=== PATIENT | male | born 1980 | race African-American/Black ===

== ENCOUNTER → 2016-07-07 | Outpatient (CLI) | payer OTHER ==
[~2016-07-07] MED LIST: ACET-749 PO; DOCU-94 PO; GABA800T PO; IBUP-1451 PO; KPP/1000 PO; LACO100T PO; LACO200T PO; LEVE500T13 PO; MELATAB2 PO; MULT-220 PO; PANT40TA PO; POLY335019 PO; QUET1TAB30 PO; SERT50TA PO; SIMV20TA2 PO; SKINCRE34 TOP; TEMA30CA4 PO; ZONI100C39 PO
[2016-07-07 13:56] LABS: ALT/SGPT 58 U/L (12-78); BLOOD UREA NITROGEN 20 mg/dl (7-18); BUN/CREATININE RATIO 15.7 (10-20); CALCIUM 8.8 mg/dl (8.5-10.1); CARBON DIOXIDE 25 mmol/L (21-32); CHLORIDE 112 mmol/L (98-107); CHOLESTEROL 168 mg/dl (0-200); GLUCOSE 105 mg/dl (70-99); POTASSIUM 3.7 mmol/L (3.5-5.1); SODIUM 144 mmol/L (136-145)
[2016-07-07 13:59] LABS: ALB/GLOB RATIO 1.1 (0.9-2); ALKALINE PHOSPHATASE 154 U/L (45-117); AST/SGOT 14 U/L (15-37); CHOLESTEROL/HDL RATIO 4.1; HDL CHOLESTEROL 41 mg/dl; LDL CHOLESTEROL CALCULATED 102 mg/dl; TRIGLYCERIDES 123 mg/dl (0-150); VERY LOW DENSITY LIPOPROT CALC 25 mg/dl
== END | disposition home or self-care (01) ==
LOC: C.LABBC 09:12
PROVIDERS: ATTEND Family Medicine
DX: G40.909 Epilepsy, unspecified, not intractable, without status epilepticus (principal); E78.5 Hyperlipidemia, unspecified

== ENCOUNTER 2016-09-13 09:00 | Emergency (ER) | payer OTHER ==
[~2016-09-13 09:00] MED LIST changes: -ACET-749 PO; -DOCU-94 PO; -KPP/1000 PO; -LACO100T PO; -MELATAB2 PO; -MULT-220 PO; -POLY335019 PO; -QUET1TAB30 PO; -SERT50TA PO; -SIMV20TA2 PO; -TEMA30CA4 PO
[2016-09-13 09:06] VITALS: TEMP 36.7; Ht 172.7 cm
[2016-09-13] MEDS ORDERED: XYLOCAINE 1%/SOD BICARB 20 ML VIAL INFIL STA (09:26)
[2016-09-13] MEDS ORDERED: POLY335019 PO (09:27)
--- NOTE | 2016-09-13 10:13 | DIAGNOSTIC IMAGING REPORT ---
HEAD CT NONCONTRAST CT DOSE: 537.48 mGy.cm HISTORY: Trauma trauma. Change in mental status. TECHNIQUE: Multiaxial CT images of the head were performed without the use of intravenous contrast. Comparison: 11/08/2015 Findings: The paranasal sinuses and mastoid air cells are clear. Stable postoperative craniotomy changes. Stable of the PRICER shunt placement. No evidence hydrocephalus. No evidence for acute intracranial hemorrhage. Geographic areas of encephalomalacia right cerebral hemisphere unchanged. Impression: Chronic and postoperative change. No acute intracranial abnormality. Electronically signed by: Steven Chaudhary M.D. 09/13/2016 10:12 AM Dictated Date/Time: 09/13/2016 10:00 AM
--- NOTE | 2016-09-13 10:53 | EMERGENCY ROOM VISIT NOTE ---
ED Visit Note First contact with patient: 09:17 Chief Complaint: "Head laceration from fall". History of Present Illness: This patient is a 35-year-old male who presents to the Emergency Department via private vehicle coming by caregivers from [facility] for evaluation of their right eyebrow laceration. Patient sustained the laceration while sleeping, and believed to a fall in the bed striking the right eyebrow off of the nearby table. They report a moderate amount of bleeding initially. They report no loss of consciousness. The patient states this occurred around 7 AM, and then called for his caregiver after falling. He believes that he caught himself. He does have a minor headache, but denies any vision changes, loss of consciousness, nausea or vomiting. Patient's Tetanus status is currently up-to-date. Medications: As noted below Allergies: As noted below PMH: As noted below SHx: Patient lives at [facility]. ROS: All pertinent positive and negative review of systems are appropriately documented in the History of Present Illness. Physical Exam: VITAL SIGNS - Vital signs and nursing notes were reviewed. Patient is afebrile , normotensive, non-tachycardic and is saturating well on room air 97%. GENERAL -35-year-old male appearing his stated age. Communicates well with provider and answers questions appropriately. SKIN - There is a 3 cm laceration noted anterior to superior over the right eyebrow. The edges gape apart with traction. There is minimal active bleeding appreciated. No deep structures including vessels, musculature, or bony structures are appreciated. HEAD - Normocephalic. No Miller's Sign or Raccoon's Eyes. No depressed skull fractures palpable. At baseline the patient does have evidence of a prior to medic brain injury/surgery. EYES - PERRL with EOMI bilaterally. Without subconjunctival hemorrhage. Palpebral conjunctiva pink and moist with no injection. EARS - No deformities of external structures noted on gross examination bilaterally. No hemotympanum present. No tympanic perforation noted. NOSE - Midline and without cyanosis. No epistaxis or clear watery discharge noted. Septum midline without deviation. No septal hematoma noted. No overlying ecchymosis noted. MOUTH/OROPHARYNX - Without perioral cyanosis. Tongue midline with equal elevation of palate bilaterally. No blood noted in the oropharynx. No tonsillar hypertrophy, erythema, or exudates noted. No dental fractures noted. NECK - FROM assessed. No tenderness to palpation over the cervical spinous processes. No cervical paraspinal muscle tenderness noted. LUNGS - Chest wall symmetric without accessory muscle use, intercostals retractions, or central cyanosis. Normal vesicular breath sounds CTA B/L. No wheezes, rales, or rhonchi appreciated. CARDIAC - RRR with S1/S2. No murmur, rubs, or gallops appreciated. EXTREMITIES - No gross deformities noted of the extremities. NEUROLOGIC - no new neurologic deficits were appreciated upon exam. PSYCH - Pt is very pleasant and interacts well with examiner. IMAGING: HEAD CT NONCONTRAST CT DOSE: 537.48 mGy.cm HISTORY: Trauma trauma. Change in mental status. TECHNIQUE: Multiaxial CT images of the head were performed without the use of intravenous contrast. Comparison: 11/08/2015 Findings: The paranasal sinuses and mastoid air cells are clear. Stable postoperative craniotomy changes. Stable of the [employer] shunt placement. No evidence hydrocephalus. No evidence for acute intracranial hemorrhage. Geographic areas of encephalomalacia right cerebral hemisphere unchanged. Impression: Chronic and postoperative change. No acute intracranial abnormality. Electronically signed by: Steven Chaudhary M.D. 09/13/2016 10:12 AM Dictated Date/Time: 09/13/2016 10:00 AM ED Course: Patient was seen and evaluated by myself. Patient had no focal neurological deficits. Patient's exam is otherwise unremarkable. Due to the patient not recalling the incident well, I was concerned for acute intracranial abnormality therefore did elect to obtain a CT scan of the head. Results as above. No acute findings. Risks and benefits of performing primary wound closure versus no repair were discussed with the patient who verbalizes understanding. Verbal consent was obtained prior to performing the procedure. 2 cc of 1% buffered lidocaine was used to anesthetize the 3 cm laceration. The wound was cleansed and prepped in the typical sterile fashion utilizing normal saline without Betadine secondary to the patient's allergy. The wound was sterilely draped. Once proper anesthetization was established, the wound was further examined and demonstrated a linear laceration overlying the right eyebrow. The wound was copiously irrigated with normal saline. The wound was closed using 6 simple, 6- 0 nylon sutures with the wound edges being well approximated as well as 1, 6-0 Vicryl underneath . Patient tolerated the procedure well. No complications were met. The wound was cleansed and dressed with a Bacitracin dressing. Patient educated on worrisome symptoms for return visit to the Emergency Department. Patient discharged to home in good condition. In the evaluation and treatment of this patient, the following differential diagnoses were considered: Concussion, Contrecoup Injury, Brain Tumor, Depression, Encephalitis, Hypothyroidism, Meningitis, CVA, TIA, Migraine, Cluster Headache, Intracranial Abnormality, Intracranial Hemorrhage, Subdural Hematoma, Subarachnoid Hemorrhage, Hydrocephalus, facial laceration ,among others . Problem List Medical Problems: (1) Seizure disorder Status: Chronic (2) Traumatic brain injury Status: Chronic Current/Historical Medications Scheduled Docusate Sodium (Colace), 1 CAP PO BID Eucerin (Eucerin), 1 APPLN TOP QPM Gabapentin (Neurontin), 800 MG PO AMPM Gabapentin (Neurontin), 1,600 MG PO HS Lacosamide (Vimpat), 200 MG PO BID Levetiracetam (Keppra), 2,000 MG PO BID Pantoprazole (Protonix), 40 MG PO QAM Polyethylene Glycol 3350 (Miralax), 17 GM PO DAILY Quetiapine Fumarate (Seroquel), 25 MG PO HS Sertraline Hcl (Zoloft), 50 MG PO DAILY Simvastatin (Zocor), 20 MG PO QPM Zonisamide (Zonegran), 100 MG PO DAILY Scheduled PRN Ibuprofen Tab (Motrin), 800 MG PO UD PRN for Pain Allergies Coded Allergies: Carbapenems (Unverified Allergy, Unknown, UNKNOWN, 09/13/16) Cephalosporins (Unverified Allergy, Unknown, UNKNOWN, 09/13/16) Iodine (Unverified Allergy, Unknown, UNKNOWN, 09/13/16) Lactose Intolerance (GI) (Unverified Allergy, Unknown, UNKNOWN, 09/13/16) Penicillins (Unverified Allergy, Unknown, UNKNOWN, 09/13/16) Pork (Unverified Allergy, Unknown, UNKNOWN, 09/13/16) Shellfish Allergy (Unverified Allergy, Unknown, UNKNOWN, 09/13/16) Vital Signs Date Time Temp Pulse Resp B/P Pulse Ox O2 Delivery O2 Flow Rate FiO2 09/13/16 11:08 79 16 124/71 99 09/13/16 09:06 36.7 76 18 118/78 97 Room Air Medications Administered Medications (Trade) Dose Ordered Sig/Kami Route Start Time Stop Time Status Last Admin Dose Admin Lidocaine HCl (Buffered Lidocaine 1% Inj) 20 ml ONE STAT INFIL 09/13/16 09:26 09/13/16 09:28 DC 09/13/16 09:26 20 ML Departure Information Impression Primary Impression: Laceration Dispostion Home / Self-Care Condition GOOD Referrals Scar Serna D.O.Int.Med. (PCP) Patient Instructions My [facility] Additional Instructions Discharge Instructions: You have received 6 sutures on your right eyebrow. These sutures are NOT dissolvable and WILL need to be removed by a health care provider in 7-8 days. You can return to the Emergency Department or contact your Primary Care Provider to have the sutures removed. Proper wound care is essential for adequate wound healing and infection prevention. You can shower and clean the wound with soap and water. Do not scour over the wound, pat dry with a towel. Do not submerse the wound (i.e. bathe or dish wash) until the sutures have been removed. You can use an antibiotic ointment with a dressing over the wound for the next 2-3 days. After this time you may leave the wound dry and open to the air. If crust develops over the wound you can use a Q-tip to apply a 1:1 peroxide:water solution to clean the wound. Look for signs of infection of the wound including: increased pain, swelling, foul discharge, streaking, or increased temperature. If any of these are noticed you should return to the Emergency Department for further assessment and treatment. As with any laceration you may have received nerve damage to the surrounding tissues. This damage may or may not be permanent. You should keep the area covered with sunscreen for the first 6 months to 1 year when at risk for exposure to help minimize scarring. You can also use scar reducing creams or Vitamin E oil to help minimize scarring. For pain control, you can use the following [id number] medicines (if >12 yo): - Regular strength (325mg/tab) Tylenol (acetaminophen) 2 tabs every 4-6 hours as needed. Do not exceed 12 tablets in a 24 hour period. Avoid taking more than 4 grams (4000 mg) of Tylenol per day. This includes any other sources of acetaminophen you may take on a regular basis. - Regular strength (200 mg/tab) Advil (ibuprofen) 1-2 tabs every 4-6 hours as needed. Do not exceed a dose of 3200 mg per day. Return to the emergency department if your symptoms worsen despite treatment course outlined above. Please return to the emergency department with any new/concerning symptoms.
[2016-09-13 11:08] VITALS: BP 124/71; PULSE 79; O2SAT 99
== END 2016-09-13 11:10 | disposition home or self-care (01) ==
LOC: C.EDB 09:01 → C.EDA 11:10
DX: S01.81XA Laceration without foreign body of other part of head, initial encounter (principal); W06.XXXA Fall from bed, initial encounter; Y92.193 Bedroom in other specified residential institution as the place of occurrence of the external cause; G40.909 Epilepsy, unspecified, not intractable, without status epilepticus; Z87.820 Personal history of traumatic brain injury; Z79.899 Other long term (current) drug therapy

== ENCOUNTER 2016-09-18 09:02 | Emergency (ER) | payer OTHER ==
[~2016-09-18] VITALS: Ht 172.7 cm; Wt 85.0 kg
[~2016-09-18 09:02] MED LIST changes: +POLY335019 PO
[2016-09-18 09:08] VITALS: TEMP 36.7; Ht 172.7 cm; Wt 85.0 kg
[2016-09-18 09:22] VITALS: O2SAT 99
[2016-09-18] MEDS ORDERED: DOCU-94 PO (09:27)
[2016-09-18 09:49] LABS: BASO % 0.5 %; BASO ABS # 0.03 K/uL (0-0.2); COMPLETE YES; EOS % 5.9 %; HEMATOCRIT 49.5 % (42-52); IG% 0.2 %; LYMPH % 27.5 %; MEAN CELL VOLUME 86.7 fL (80-100); MEAN CORPUSCULAR HEMOGLOBIN 30.8 pg (25-34); MEAN CORPUSCULAR HGB CONC 35.6 g/dl (32-36); MEAN PLATELET VOLUME 11.5 fL (7.4-10.4); MONO % 8.8 %; NEUT % 57.1 %; PLATELET COUNT 136 K/uL (130-400); RED BLOOD COUNT 5.71 M/uL (4.7-6.1); WHITE BLOOD COUNT 5.81 K/uL (4.8-10.8)
[2016-09-18] MEDS ORDERED: MELATAB2 PO (09:54)
[2016-09-18] MEDS ORDERED: MULT-220 PO (09:54)
[2016-09-18] MEDS ORDERED: TEMA30CA4 PO (09:54)
[2016-09-18 10:17] LABS: ALB/GLOB RATIO 1.1 (0.9-2); BUN/CREATININE RATIO 11.9 (10-20); CALCIUM 8.9 mg/dl (8.5-10.1); CREATININE 1.2 mg/dl (0.60-1.40); POTASSIUM 3.9 mmol/L (3.5-5.1)
[2016-09-18] MEDS ORDERED: IBUPROFEN 800 MG TAB PO STA (10:36)
[2016-09-18] MEDS ORDERED: IBUPROFEN 200 MG TAB ONE (10:37)
[2016-09-18] MEDS ORDERED: IBUPROFEN 600 MG TAB ONE (10:37)
--- NOTE | 2016-09-18 11:05 | EMERGENCY ROOM VISIT NOTE ---
History Report prepared by Germania: Andrei Weiner Under the Supervision of: Dr. Tony Dodge M.D. First contact with patient: 10:19 Chief Complaint: NEURO SYMPTOMS Stated Complaint: SEIZURES X2 IN LESS THAN 24 HRS Nursing Triage Summary: Presents with 2 seizures in 24 hours. History of Present Illness The patient is a 35 year old male who presents to the Emergency Room with complaints of two seizure-like episodes in twenty-four hours. The patient has a history of TBI, seizures and a POOL HAND shunt. Per the patient's caretakers, the last time the patient had seizures was 9 months ago. At that time, he was having very frequent seizures and he was brought into the hospital for 2 days. The patient's neurologist advised the patient's caretakers to call her if he had one seizure and to present to the ED if he had 2 seizure episodes in 24 hours. The patient had one seizure last night around 8 PM. He had another witnessed seizure episode this morning. Per the patient's caretakers, the episode lasted 2 -3 minutes. His whole body was shaking and his eyes rolled back. The caretakers caught him and laid him on his side on the floor. Per the caretakers, the patient has been sleeping more irregularly for the last month. He also had episodes of incontinence before and after his seizure episode yesterday evening ; however, he was not incontinent during his seizure-episode this morning. His left-side is typically weak from his brain injury and this weakness is worsened after seizures. He complains of left-sided arm and leg weakness currently. However, per caretakers, his weakness has already improved since the episode this morning. He also complains of a headache. He denies pain in his abdomen or legs or biting his tongue. He was also recently in the ED last week for a fall. At that time, he had a CT scan which was clear. He denies any recent changes in his seizure medications. Source of History: patient Onset: the past twenty-four hours Position: other (global) Associated Symptoms: + headache, + urinary symptoms (incontinence), + weakness (left-sided), No abdominal pain Note: Other associated symptoms: shaking, eyes rolling back, irregular sleep patterns Denies: biting his tongue, recent changes in medications Review of Systems All systems have been listed, reviewed, and are negative other than those previously mentioned. Please see Additional Medical History Sheet. Past Medical & Surgical Medical Problems: (1) Seizure disorder (2) Traumatic brain injury Family History No pertinent family history Social History Smoking Status: Former Smoker Drug Use: none Marital Status: single Occupation Status: disabled Current/Historical Medications Scheduled Docusate Sodium (Colace), 1 CAP PO BID Eucerin (Eucerin), 1 APPLN TOP QPM Gabapentin (Neurontin), 800 MG PO AMPM Gabapentin (Neurontin), 1,600 MG PO HS Lacosamide (Vimpat), 200 MG PO BID Levetiracetam (Keppra), 2,000 MG PO BID Melatonin (Melatonin Maximum Strengt), 5 MG PO HS Multiple Vitamins W/ Minerals (Multi For Him), 1 TAB PO DAILY Pantoprazole (Protonix), 40 MG PO QAM Polyethylene Glycol 3350 (Miralax), 17 GM PO DAILY Quetiapine Fumarate (Seroquel), 25 MG PO HS Sertraline Hcl (Zoloft), 50 MG PO DAILY Simvastatin (Zocor), 20 MG PO QPM Zonisamide (Zonegran), 100 MG PO DAILY Scheduled PRN Ibuprofen Tab (Motrin), 800 MG PO UD PRN for Pain Temazepam (Restoril), 30 MG PO HS PRN for Sleep Allergies Coded Allergies: Carbapenems (Unverified Allergy, Unknown, UNKNOWN, 09/13/16) Cephalosporins (Unverified Allergy, Unknown, UNKNOWN, 09/13/16) Iodine (Unverified Allergy, Unknown, UNKNOWN, 09/13/16) Lactose Intolerance (GI) (Unverified Allergy, Unknown, UNKNOWN, 09/13/16) Penicillins (Unverified Allergy, Unknown, UNKNOWN, 09/13/16) Pork (Unverified Allergy, Unknown, UNKNOWN, 09/13/16) Shellfish Allergy (Unverified Allergy, Unknown, UNKNOWN, 09/13/16) Physical Exam Vital Signs Date Time Temp Pulse Resp B/P Pulse Ox O2 Delivery O2 Flow Rate FiO2 09/18/16 12:41 76 18 119/78 96 Room Air 09/18/16 10:44 70 18 137/96 96 Room Air 09/18/16 09:27 76 09/18/16 09:22 99 Room Air 09/18/16 09:08 36.7 78 20 115/78 93 Room Air Physical Exam GENERAL: Patient awake, alert, oriented x 3. Patient follows commands. Patient does not appear toxic. Patient is adequately hydrated and well- nourished. Patient has old traumatic injury to the right side of his face and fronto-temporal area. SKIN: No erythema, pallor, cyanosis or rash HEENT: Normal head, Patient has dysconjugate gaze. Ears normal. Oral cavity and posterior pharynx appear normal. Neck: Without adenopathy, no neck vein distention. LUNGS: Clear to auscultation. No wheezes, no rales, no rhonchi. HEART: No murmurs. No gallops. No rubs ABDOMEN: No masses, no rebound, no hepatomegaly or splenomegaly. EXTREMITIES: No signs of trauma. No pedal or pretibial edema. No calf or thigh tenderness. Patient has weakness of left arm and left leg which is typical of post-seizure findings. NEUROLOGIC: Cranial nerves II-XII within normal limits. No gross motor sensory function deficits. Medical Decision & Procedures ER Provider Diagnostic Interpretation: CT results are interpretations by the radiologist and per my review. CT SCAN OF THE BRAIN WITHOUT IV CONTRAST CLINICAL HISTORY: Seizure. History of remote brain injury with ventriculoperitoneal shunt. COMPARISON STUDY: CT of the brain dated 09/13/2016. TECHNIQUE: Unenhanced axial CT scan of the brain is performed from the vertex to the skull base. Automated dose control exposure was utilized. CT DOSE: 690.05 mGycm FINDINGS: Brain parenchyma: Right frontotemporoparietal encephalomalacia is unchanged from previous and consistent with a remote insult. A left posterior parietal approach ventriculostomy catheter is unchanged in position, with the tip terminating in the right periventricular white matter. Ventricular caliber is unchanged from previous. There is no hemorrhage, mass effect, or evidence of acute territorial ischemia by CT criteria. [place]-white matter is preserved. No extra-axial fluid collection is seen. Ventricles, sulci, cisterns: Normal in configuration. See above. Intracranial vasculature: The visualized intracranial vasculature at the skull base is normal in appearance. Calvarium: There are postoperative changes from right frontoparietal craniotomy and right temporal craniectomy. There is a left posterior parietal jose hole. Sinuses and mastoids: The visualized paranasal sinuses are clear. The mastoid air cells are well pneumatized. A metallic foreign body is seen below the left mastoids. Metallic foreign bodies are also seen posterior to the left mandibular condyle. Orbits: There is a remote fracture of the left lamina papyracea. The bony orbits are otherwise grossly intact. IMPRESSION: 1. There is no hemorrhage, mass effect, or evidence of acute territorial ischemia by CT criteria. 2. Right hemispheric encephalomalacia is unchanged from previous and consistent with a remote insult. 3. A left parietal approach ventriculostomy catheter is unchanged in position. The ventricles are decompressed, and ventricular caliber is unchanged from 09/13/2016. Electronically signed by: Hank Lagunas M.D. 09/18/2016 11:26 AM Dictated Date/Time: 09/18/2016 11:21 AM Laboratory Results 09/18/16 09:35 Red Blood Count 5.71, Mean Corpuscular Volume 86.7, Mean Corpuscular Hemoglobin 30.8, Mean Corpuscular Hemoglobin Concent 35.6, Mean Platelet Volume 11.5, Neutrophils (%) (Auto) 57.1, Lymphocytes (%) (Auto) 27.5, Monocytes (%) (Auto) 8.8, Eosinophils (%) (Auto) 5.9, Basophils (%) (Auto) 0.5, Neutrophils # (Auto) 3.32, Lymphocytes # (Auto) 1.60, Monocytes # (Auto) 0.51, Eosinophils # (Auto) 0.34, Basophils # (Auto) 0.03 09/18/16 09:35 Test 09/18/16 09:35 09/18/16 11:30 White Blood Count 5.81 K/uL (4.8-10.8) Red Blood Count 5.71 M/uL (4.7-6.1) Hemoglobin 17.6 g/dL (14.0-18.0) Hematocrit 49.5 % (42-52) Mean Corpuscular Volume 86.7 fL (80-100) Mean Corpuscular Hemoglobin 30.8 pg (25-34) Mean Corpuscular Hemoglobin Concent 35.6 g/dl (32-36) Platelet Count 136 K/uL (130-400) Mean Platelet Volume 11.5 fL (7.4-10.4) Neutrophils (%) (Auto) 57.1 % Lymphocytes (%) (Auto) 27.5 % Monocytes (%) (Auto) 8.8 % Eosinophils (%) (Auto) 5.9 % Basophils (%) (Auto) 0.5 % Neutrophils # (Auto) 3.32 K/uL (1.4-6.5) Lymphocytes # (Auto) 1.60 K/uL (1.2-3.4) Monocytes # (Auto) 0.51 K/uL (0.11-0.59) Eosinophils # (Auto) 0.34 K/uL (0-0.5) Basophils # (Auto) 0.03 K/uL (0-0.2) RDW Standard Deviation 41.1 fL (36.4-46.3) RDW Coefficient of Variation 12.9 % (11.5-14.5) Immature Granulocyte % (Auto) 0.2 % Immature Granulocyte # (Auto) 0.01 K/uL (0.00-0.02) Anion Gap 6.0 mmol/L (3-11) Est Creatinine Clear Calc Drug Dose 92.0 ml/min Estimated GFR () 90.9 Estimated GFR (Non- 78.4 BUN/Creatinine Ratio 11.9 (10-20) Calcium Level 8.9 mg/dl (8.5-10.1) Total Bilirubin 0.6 mg/dl (0.2-1) Aspartate Amino Transf (AST/SGOT) 22 U/L (15-37) Alanine Aminotransferase (ALT/SGPT) 61 U/L (12-78) Alkaline Phosphatase 127 U/L (45-117) Total Protein 7.9 gm/dl (6.4-8.2) Albumin 4.1 gm/dl (3.4-5.0) Globulin 3.8 gm/dl (2.5-4.0) Albumin/Globulin Ratio 1.1 (0.9-2) Chemistry Specimen Hemolysis Laboratory results as stated above per my review. Medications Administered Medications (Trade) Dose Ordered Sig/Kami Route Start Time Stop Time Status Last Admin Dose Admin Ibuprofen (Motrin Tab) 600 mg STK-MED ONCE .ROUTE 09/18/16 10:37 09/18/16 10:41 DC 09/18/16 10:37 600 MG Ibuprofen (Advil Tab) 200 mg STK-MED ONCE .ROUTE 09/18/16 10:37 3/27/17 10:41 DC 09/18/16 10:37 200 MG Ondansetron HCl (Zofran Odt) 4 mg ONE ONCE SL 09/18/16 12:45 09/18/16 12:46 DC 09/18/16 12:40 4 MG ED Course 1024: Past medical records reviewed. The patient was evaluated in room B5. A complete history and physical examination was performed. 1037: Ordered Advil Tab 200 mg .ROUTE, Motrin Tab 600 mg .ROUTE. 1245: Ordered Zofran Odt 4 mg SL. 1254: Upon reevaluation, the patient appeared to have improvement of his symptoms. The patient has not had a another seizure in over 3 hours. I discussed today's findings with him. He verbalized agreement of the treatment plan. The patient was discharged home. Medical Decision Differential diagnoses include seizure disorder, shunt malfunction, or seizure medication levels. Multiple labs and imaging were obtained. Please see above. The patient has no evidence of a shunt malfunction. He has no signs of acute bleed. Seizure medication levels are pending. The patient has not had as much sleep lately as usual. This may be a precipitating factor. At this point, I do not see any value in admitting the patient. I did explain to the caregivers that he could have another seizure. The patient is to follow-up with Dr. Degroot. Impression Primary Impression: Seizure disorder Scribe Attestation The scribe's documentation has been prepared under my direction and personally reviewed by me in its entirety. I confirm that the note above accurately reflects all work, treatment, procedures, and medical decision making performed by me. Departure Information Dispostion Home / Self-Care Referrals Scar Serna D.O.Int.Med. (PCP) Rena Dee D.O. Forms HOME CARE DOCUMENTATION FORM, IMPORTANT VISIT INFORMATION, WORK / SCHOOL INSTRUCTIONS Patient Instructions My [facility] Additional Instructions Continue all of your current medications as prescribed. Follow-up with Dr. Degroot as soon as possible. Return here sooner if you have more than one seizure in 12 hours.
--- NOTE | 2016-09-18 11:27 | DIAGNOSTIC IMAGING REPORT ---
CT SCAN OF THE BRAIN WITHOUT IV CONTRAST CLINICAL HISTORY: Seizure. History of remote brain injury with ventriculoperitoneal shunt. COMPARISON STUDY: CT of the brain dated 09/13/2016. TECHNIQUE: Unenhanced axial CT scan of the brain is performed from the vertex to the skull base. Automated dose control exposure was utilized. CT DOSE: 690.05 mGycm FINDINGS: Brain parenchyma: Right frontotemporoparietal encephalomalacia is unchanged from previous and consistent with a remote insult. A left posterior parietal approach ventriculostomy catheter is unchanged in position, with the tip terminating in the right periventricular white matter. Ventricular caliber is unchanged from previous. There is no hemorrhage, mass effect, or evidence of acute territorial ischemia by CT criteria. [place]-white matter is preserved. No extra-axial fluid collection is seen. Ventricles, sulci, cisterns: Normal in configuration. See above. Intracranial vasculature: The visualized intracranial vasculature at the skull base is normal in appearance. Calvarium: There are postoperative changes from right frontoparietal craniotomy and right temporal craniectomy. There is a left posterior parietal jose hole. Sinuses and mastoids: The visualized paranasal sinuses are clear. The mastoid air cells are well pneumatized. A metallic foreign body is seen below the left mastoids. Metallic foreign bodies are also seen posterior to the left mandibular condyle. Orbits: There is a remote fracture of the left lamina papyracea. The bony orbits are otherwise grossly intact. IMPRESSION: 1. There is no hemorrhage, mass effect, or evidence of acute territorial ischemia by CT criteria. 2. Right hemispheric encephalomalacia is unchanged from previous and consistent with a remote insult. 3. A left parietal approach ventriculostomy catheter is unchanged in position. The ventricles are decompressed, and ventricular caliber is unchanged from 09/13/2016. Electronically signed by: Hank Lagunas M.D. 09/18/2016 11:26 AM Dictated Date/Time: 09/18/2016 11:21 AM
[2016-09-18] MEDS ORDERED: QUET1TAB30 PO (12:04)
[2016-09-18] MEDS ORDERED: SIMV20TA2 PO (12:04)
[2016-09-18] MEDS ORDERED: SERT50TA PO (12:04)
[2016-09-18] MEDS ORDERED: ONDANSETRON 4MG OD TAB ONE (12:33)
[2016-09-18 12:41] VITALS: BP 119/78; PULSE 76; O2SAT 96
[2016-09-18] MEDS ORDERED: ONDANSETRON 4MG OD TAB SL ONE (12:45)
[2016-09-18] MEDS ORDERED: GABA800T PO ×2 (14:51→20:04)
[2016-09-18] MEDS ORDERED: KPP/1000 PO (19:51)
[2016-09-18] MEDS ORDERED: LACO100T PO (19:53)
== END 2016-09-18 13:02 | disposition home or self-care (01) ==
LOC: C.EDB 09:03
DX: G40.909 Epilepsy, unspecified, not intractable, without status epilepticus (principal); Z87.820 Personal history of traumatic brain injury; Z98.2 Presence of cerebrospinal fluid drainage device; Z87.891 Personal history of nicotine dependence; Z79.899 Other long term (current) drug therapy

== ENCOUNTER 2016-09-18 16:45 | Emergency (ER) | payer OTHER ==
[~2016-09-18] VITALS: Ht 172.7 cm; Wt 85.0 kg
[~2016-09-18 16:45] MED LIST changes: +DOCU-94 PO; +MELATAB2 PO; +MULT-220 PO; +QUET1TAB30 PO; +SERT50TA PO; +SIMV20TA2 PO; +TEMA30CA4 PO
[2016-09-18 17:02] VITALS: TEMP 37; Ht 172.7 cm; Wt 85.0 kg
[2016-09-18 19:28] VITALS: O2SAT 97
[2016-09-18] MEDS ORDERED: LEVETIRACETAM 500 MG TAB PO STA (19:33)
[2016-09-18] MEDS ORDERED: ZONISAMIDE 100 MG CAP PO STA (19:37)
--- NOTE | 2016-09-18 19:39 | EMERGENCY ROOM VISIT NOTE ---
History Report prepared by Germania: Tamanna Morton Under the Supervision of: Dr. Gunnar Mejia M.D. First contact with patient: 19:08 Chief Complaint: SEIZURE Stated Complaint: SEIZURE (2 WITHIN HOUR) Nursing Triage Summary: pt is TBI with seizure disorder pt seen in ER this am for seizures and d/c pt at [facility] and on arriving home pt had 2 additional seizures, on arrival to ER pt c/o headache pt is answering quest, back to base line History of Present Illness The patient is a 35 year old male who presents to the Emergency Room with complaints of four seizures that occurred today. He currently rates his discomfort as a 10/10 in severity. The patient states that he has a history of a traumatic brain injury and additionally has a seizure disorder. The patient' s caretakers note that the patient has chronic headaches, but states that his headaches have been worse today. The caretakers note that the patient was evaluated in the emergency department today after having two seizures. They note that the patient was discharged home. Caretakers state that the patient then had two more seizures. They note that the patient's seizures were grand- mal, stating that he was rigid, eyes rolling back in head, drooling, and shaking. Caretakers state that the patient had weakness after each seizure. The patient states that he follows with Dr. Dee with Neurology. Caretakers state that the patient's last seizure was over one year ago. They state that the patient took all his normal medications today. The patient denies any recent illness or fever. Source of History: patient, caregiver Onset: today Position: other (global) Symptom Intensity: 10/10 Quality: other (seizure) Timing: other (four) Associated Symptoms: + headache Note: Associated Symptoms: rigid, eyes rolling back in head, drooling, shaking Review of Systems See HPI for pertinent positives & negatives. A total of 10 systems reviewed and were otherwise negative. Past Medical & Surgical Medical Problems: (1) Seizure disorder (2) Traumatic brain injury Family History No pertinent family history Social History Smoking Status: Former Smoker Drug Use: none Marital Status: single Occupation Status: disabled Current/Historical Medications Scheduled Eucerin (Eucerin), 1 APPLN TOP QPM Gabapentin (Neurontin), 800 MG PO BID Gabapentin (Neurontin), 1,600 MG PO QPM Lacosamide (Vimpat), 200 MG PO BID Levetiracetam (Keppra), 2,000 MG PO BID Melatonin (Melatonin Maximum Strengt), 5 MG PO HS Multiple Vitamins W/ Minerals (Multi For Him), 1 TAB PO DAILY Pantoprazole (Protonix), 40 MG PO QAM Quetiapine Fumarate (Seroquel), 25 MG PO HS Sertraline Hcl (Zoloft), 50 MG PO DAILY Simvastatin (Zocor), 20 MG PO QPM Zonisamide (Zonegran), 100 MG PO QPM Scheduled PRN Docusate Sodium (Colace), 1 CAP PO BID PRN for Ibuprofen Tab (Motrin), 800 MG PO UD PRN for Pain Polyethylene Glycol 3350 (Miralax), 17 GM PO DAILY PRN for Constipation Temazepam (Restoril), 30 MG PO HS PRN for Sleep Allergies Coded Allergies: Carbapenems (Unverified Allergy, Unknown, UNKNOWN, 09/13/16) Cephalosporins (Unverified Allergy, Unknown, UNKNOWN, 09/13/16) Iodine (Unverified Allergy, Unknown, UNKNOWN, 09/13/16) Lactose Intolerance (GI) (Unverified Allergy, Unknown, UNKNOWN, 09/13/16) Penicillins (Unverified Allergy, Unknown, UNKNOWN, 09/13/16) Pork (Unverified Allergy, Unknown, UNKNOWN, 09/13/16) Shellfish Allergy (Unverified Allergy, Unknown, UNKNOWN, 09/13/16) Physical Exam Vital Signs Date Time Temp Pulse Resp B/P Pulse Ox O2 Delivery O2 Flow Rate FiO2 09/18/16 20:34 78 18 101/79 97 09/18/16 19:30 82 16 101/75 97 Room Air 09/18/16 19:28 97 Room Air 09/18/16 19:26 Room Air 09/18/16 19:26 82 16 97 Room Air 09/18/16 17:02 37.0 96 20 116/73 96 Room Air Physical Exam GENERAL: Patient is a healthy-appearing well-nourished HEAD: Normocephalic atraumatic EYES: Ocular movements intact pupils equal and react to light OROPHARYNX mucous membranes are moist no exudates present no erythema or edema present NECK: No evidence of meningitis or encephalitis on exam. Supple no nuchal rigidity CHEST: Good equal expansion LUNGS: Clear and equal to auscultation CARDIAC: Normal S1 and S2 ABDOMEN: Soft nontender no guarding BACK: No CVA tenderness EXTREMITIES: No pain upon palpation normal muscle strength in all groups no clubbing cyanosis or edema NEURO: Patient is following commands is answering questions appropriately. Alert and oriented x3 Cranial Nerves 2-12 grossly intact Medical Decision & Procedures Laboratory Results 09/18/16 19:30 Red Blood Count 5.45, Mean Corpuscular Volume 87.5, Mean Corpuscular Hemoglobin 30.8, Mean Corpuscular Hemoglobin Concent 35.2, Mean Platelet Volume 11.7, Neutrophils (%) (Auto) 59.4, Lymphocytes (%) (Auto) 26.8, Monocytes (%) (Auto) 9.3, Eosinophils (%) (Auto) 3.6, Basophils (%) (Auto) 0.5, Neutrophils # (Auto) 4.83, Lymphocytes # (Auto) 2.18, Monocytes # (Auto) 0.76, Eosinophils # (Auto) 0.29, Basophils # (Auto) 0.04 09/18/16 19:30 Test 09/18/16 19:26 09/18/16 19:30 09/18/16 20:00 Bedside Glucose 101 mg/dl (70-99) White Blood Count 8.13 K/uL (4.8-10.8) Red Blood Count 5.45 M/uL (4.7-6.1) Hemoglobin 16.8 g/dL (14.0-18.0) Hematocrit 47.7 % (42-52) Mean Corpuscular Volume 87.5 fL (80-100) Mean Corpuscular Hemoglobin 30.8 pg (25-34) Mean Corpuscular Hemoglobin Concent 35.2 g/dl (32-36) Platelet Count 155 K/uL (130-400) Mean Platelet Volume 11.7 fL (7.4-10.4) Neutrophils (%) (Auto) 59.4 % Lymphocytes (%) (Auto) 26.8 % Monocytes (%) (Auto) 9.3 % Eosinophils (%) (Auto) 3.6 % Basophils (%) (Auto) 0.5 % Neutrophils # (Auto) 4.83 K/uL (1.4-6.5) Lymphocytes # (Auto) 2.18 K/uL (1.2-3.4) Monocytes # (Auto) 0.76 K/uL (0.11-0.59) Eosinophils # (Auto) 0.29 K/uL (0-0.5) Basophils # (Auto) 0.04 K/uL (0-0.2) RDW Standard Deviation 41.1 fL (36.4-46.3) RDW Coefficient of Variation 13.0 % (11.5-14.5) Immature Granulocyte % (Auto) 0.4 % Immature Granulocyte # (Auto) 0.03 K/uL (0.00-0.02) Anion Gap 7.0 mmol/L (3-11) Est Creatinine Clear Calc Drug Dose 92.0 ml/min Estimated GFR () 90.9 Estimated GFR (Non- 78.4 BUN/Creatinine Ratio 13.6 (10-20) Calcium Level 8.6 mg/dl (8.5-10.1) Phosphorus Level 2.7 mg/dl (2.5-4.9) Magnesium Level 2.1 mg/dl (1.8-2.4) Thyroid Stimulating Hormone (TSH) 0.866 uIu/ml (0.300-4.500) Urine Color DK YELLOW Urine Appearance CLEAR (CLEAR) Urine pH 6.5 (4.5-7.5) Urine Specific [place] 1.028 (1.000-1.030) Urine Protein NEG (NEG) Urine Glucose (UA) NEG (NEG) Urine Ketones NEG (NEG) Urine Occult Blood NEG (NEG) Urine Nitrite NEG (NEG) Urine Bilirubin NEG (NEG) Urine Urobilinogen NEG (NEG) Urine Leukocyte Esterase NEG (NEG) Labs reviewed by ED physician. Medications Administered Medications (Trade) Dose Ordered Sig/Kami Route Start Time Stop Time Status Last Admin Dose Admin Levetiracetam (Keppra Tab) 500 mg NOW STAT PO 09/18/16 19:33 09/18/16 19:35 DC 09/18/16 19:57 500 MG Zonisamide (Zonegran) 100 mg NOW STAT PO 09/18/16 19:37 09/18/16 19:38 DC 09/18/16 19:58 100 MG ED Course 1909: Past medical records reviewed. The patient was evaluated in room A11B. A complete history and physical examination was performed. 1918: I discussed the patients case with Dr. Ratliff, Neurology. He states that the patient can either have a onetime extra dose of Keppra, or increase Zonegran. 1932: I reevaluated the patient he is resting comfortably. I discussed the conversation I had with Dr. Ratliff, Neurology with the patient and his caretakers. They are in agreement to increase the patients Zonegran. The patient has an appointment with Dr. Dee, Neurology tomorrow. The patient is ready for discharge shortly. Ordered Keppra Tab 500 mg PO. 1936: Ordered Zonegran 100 mg PO. Medical Decision Differential diagnosis: Etiologies such as infection, hypoglycemia, electrolyte abnormalities, cardiac sources, intracerebral event, trauma, toxicologic, neurologic, as well as others were entertained. This is a 35-year-old male who presents emergency department this time today with multiple seizures. Due to the presentation I did discuss the case with the neurologist on-call who asked that the patient be given a one-time extra dose of Keppra and in addition his other seizure medication be increased to twice a day. The patient is in agreement with this and does have follow-up appointment with neurology tomorrow. Otherwise he appears healthy and has no evidence of meningitis encephalitis on examination. Patient family were in agreement with the treatment plan. Consults Time Called: 1914 Consulting Physician: Dr. Ratliff, Neurology Returned Call: 1918 I discussed the patients case with Dr. Ratliff, Neurology. He states that the patient can either have a onetime extra dose of Keppra, or increase Zonegran. Impression Primary Impression: Seizure Scribe Attestation The scribe's documentation has been prepared under my direction and personally reviewed by me in its entirety. I confirm that the note above accurately reflects all work, treatment, procedures, and medical decision making performed by me. Departure Information Dispostion Home / Self-Care Referrals Scar Serna D.O.Int.Med. (PCP) Rena Dee D.O. Forms HOME CARE DOCUMENTATION FORM, IMPORTANT VISIT INFORMATION, School Instructions, Work Instructions Patient Instructions ED Seizure Recurrent, My [facility] Additional Instructions Increase Zonegran to 100mg BID Keppra 500 mg- one time dose Follow up with DR Degroot's office tomorrow You have been examined and treated today on an emergency basis only. This is not a substitute for, or an effort to provide, complete comprehensive medical care. It is impossible to recognize and treat all injuries or illnesses in a single emergency department visit. It is therefore important that you follow up closely with Dr Serna. Call as soon as possible for an appointment. Thank you for your time and consideration. I look forward to speaking with you again soon. Please don't hesitate to call us if you have any questions.
[2016-09-18 19:46] LABS: BASO % 0.5 %; BASO ABS # 0.04 K/uL (0-0.2); COMPLETE YES; EOS % 3.6 %; HEMATOCRIT 47.7 % (42-52); IG% 0.4 %; LYMPH % 26.8 %; LYMPH ABS # 2.18 K/uL (1.2-3.4); MEAN CELL VOLUME 87.5 fL (80-100); MEAN CORPUSCULAR HEMOGLOBIN 30.8 pg (25-34); MEAN CORPUSCULAR HGB CONC 35.2 g/dl (32-36); MEAN PLATELET VOLUME 11.7 fL (7.4-10.4); MONO % 9.3 %; NEUT % 59.4 %; PLATELET COUNT 155 K/uL (130-400); RED BLOOD COUNT 5.45 M/uL (4.7-6.1); WHITE BLOOD COUNT 8.13 K/uL (4.8-10.8)
[2016-09-18] MEDS ORDERED: KPP/1000 PO (19:51)
[2016-09-18] MEDS ORDERED: LACO100T PO (19:53)
[2016-09-18 20:03] LABS: BUN/CREATININE RATIO 13.6 (10-20); CALCIUM 8.6 mg/dl (8.5-10.1); CREATININE 1.2 mg/dl (0.60-1.40); MAGNESIUM 2.1 mg/dl (1.8-2.4)
[2016-09-18] MEDS ORDERED: GABA800T PO (20:04)
[2016-09-18 20:13] LABS: PHOSPHORUS 2.7 mg/dl (2.5-4.9); THYROID STIMULATING HORMONE 0.866 uIu/ml (0.300-4.500)
[2016-09-18 20:34] VITALS: BP 101/79; PULSE 78; O2SAT 97
[2016-09-18 20:38] LABS: URINE APPEARANCE CLEAR (CLEAR); URINE BILIRUBIN NEG (NEG); URINE COLOR DK YELLOW; URINE NITRITE NEG (NEG); URINE PH 6.5 (4.5-7.5); URINE SPECIFIC GRAVITY 1.028 (1.000-1.030); UROBILINOGEN NEG (NEG)
[2016-09-18 20:42] LABS: MANUAL MICROSCOPIC REQUIRED? NO; REVIEW REQ? NO
== END 2016-09-18 20:36 | disposition home or self-care (01) ==
LOC: C.EDB 16:46 → C.EDA 20:36
DX: G40.909 Epilepsy, unspecified, not intractable, without status epilepticus (principal); Z87.820 Personal history of traumatic brain injury; Z98.2 Presence of cerebrospinal fluid drainage device; Z87.891 Personal history of nicotine dependence; Z79.899 Other long term (current) drug therapy

== ENCOUNTER → 2017-01-09 | Outpatient (CLI) | payer OTHER ==
[~2017-01-09] MED LIST changes: +KPP/1000 PO; +LACO100T PO; -LACO200T PO; -LEVE500T13 PO
[2017-01-09 14:24] LABS: BASO % 0.7 %; BASO ABS # 0.04 K/uL (0-0.2); COMPLETE YES; EOS % 5.9 %; HEMATOCRIT 46.4 % (42-52); IG% 0.2 %; LYMPH % 30.7 %; LYMPH ABS # 1.77 K/uL (1.2-3.4); MEAN CELL VOLUME 87.1 fL (80-100); MEAN CORPUSCULAR HEMOGLOBIN 30.4 pg (25-34); MEAN CORPUSCULAR HGB CONC 34.9 g/dl (32-36); MEAN PLATELET VOLUME 11.8 fL (7.4-10.4); MONO % 11.1 %; NEUT % 51.4 %; PLATELET COUNT 144 K/uL (130-400); RED BLOOD COUNT 5.33 M/uL (4.7-6.1); WHITE BLOOD COUNT 5.76 K/uL (4.8-10.8)
[2017-01-09 14:28] LABS: ALT/SGPT 43 U/L (12-78); AST/SGOT 11 U/L (15-37); BLOOD UREA NITROGEN 17 mg/dl (7-18); BUN/CREATININE RATIO 15.8 (10-20); CALCIUM 8.8 mg/dl (8.5-10.1); CARBON DIOXIDE 26 mmol/L (21-32); CHLORIDE 113 mmol/L (98-107); GLUCOSE 86 mg/dl (70-99); POTASSIUM 4.1 mmol/L (3.5-5.1); SODIUM 142 mmol/L (136-145)
[2017-01-09 14:31] LABS: ALB/GLOB RATIO 1.1 (0.9-2); ALKALINE PHOSPHATASE 118 U/L (45-117)
[2017-01-09 14:34] LABS: URINE APPEARANCE CLOUDY (CLEAR); URINE BILIRUBIN NEG (NEG); URINE COLOR DK YELLOW; URINE NITRITE NEG (NEG); URINE PH 7.5 (4.5-7.5); URINE SPECIFIC GRAVITY 1.028 (1.000-1.030); UROBILINOGEN NEG (NEG)
[2017-01-09 14:36] LABS: MANUAL MICROSCOPIC REQUIRED? NO; REVIEW REQ? NO
== END | disposition home or self-care (01) ==
LOC: C.LABBC 11:30
PROVIDERS: ATTEND Physician Assistant
DX: R39.9 Unspecified symptoms and signs involving the genitourinary system (principal)

== ENCOUNTER → 2017-01-25 | Outpatient (CLI) | payer OTHER ==
[~2017-01-25] VITALS: Ht 172.7 cm; Wt 86.7 kg
[2017-01-25 08:49] VITALS: BP 120/82; PULSE 84; Ht 172.7 cm; Wt 86.7 kg
== END | disposition home or self-care (01) ==
LOC: C.NEUR 08:35
PROVIDERS: ATTEND Internal Medicine Pulmonary Disease
DX: G47.33 Obstructive sleep apnea (adult) (pediatric) (principal); G47.19 Other hypersomnia; G40.909 Epilepsy, unspecified, not intractable, without status epilepticus

== ENCOUNTER → 2017-02-14 | Outpatient (CLI) | payer OTHER ==
--- NOTE | 2017-02-14 11:14 | DIAGNOSTIC IMAGING REPORT ---
RENAL ULTRASOUND HISTORY: N31.9 Neurogenic bladder no latex [id number] COMPARISON: None. FINDINGS: Right kidney: 9.7 cm. No hydronephrosis. Normal corticomedullary differentiation and cortical thickness. The lower pole is partially obscured by overlying bowel gas. Left kidney: 10.9 cm. No hydronephrosis. Normal corticomedullary differentiation and cortical thickness. There is 1 cm stone within the interpolar region. Possible 6 mm stone within the lower pole. Bladder: No bladder wall thickening. The bilateral ureteral jets were identified. Prevoid volume was 333 cc. Post void residual was 70 cc. IMPRESSION: 1. Left-sided nephrolithiasis. 2. No hydronephrosis. 3. Small postvoid residual of 70 cc. Electronically signed by: Spenser Amaro M.D. 02/14/2017 11:12 AM Dictated Date/Time: 02/14/2017 11:09 AM
== END | disposition home or self-care (01) ==
LOC: C.ULTRBC 10:19
PROVIDERS: ATTEND Urology
DX: N31.9 Neuromuscular dysfunction of bladder, unspecified (principal)

== ENCOUNTER → 2017-03-06 | Outpatient (CLI) | payer OTHER ==
--- NOTE | 2017-03-07 05:43 | PAP/PSG TECHNICIAN REPORT ---
[facility] Polysomnogram Report Study name: None Report date: 03/07/2017 Study date: 03/06/2017 Referring Physician: Dr. Nadir Blankenship DO Name: RACHEL WALTERS Interpreting Physician: Nadir Blankenship D.O. Date of : 1980 [facility] Blood [facility]: [facility]. Sex: Male Age: 36 StudyType: PSG Weight: 191.2 lbs Height: 36 years, Height 5' 8" BMI: 29.07 Medications: Pantoprazole Sodium 40 mg, Gabapentin 800 mg, Polythylene Glycol 3350, Colace 100 mg, Levetiracetam 1000 mg, Vimpat 100 mg, Zonisamide 100 mg, Simvastatin 20 mg, Sulfamethoxazole-Trimethoprim 800-160mg, Ibuprofen 800 mg, Seroquel 25 mg, Melatonin 5 mg, Temazepam 30 mg, Zoloft 50 mg Patient History 36 yr. old male here tonight for a diagnostic sleep study in room 7. He is accompanied by Kayy, his studio set up worker. Patient complains of insomnia and EDS. Patients Dana Sleepiness Scale score is 18 Parameters Monitored NPSG: E1-M2, E2-M1, Fp1-M2, Fp2-M1, F3-M2, F4-M2, F4-M1, C3-M2, C4-M2, C4-M1, O1-M2, O2-M2, O2-M1, T3-M2, T4-M1, P3-M2, P4-M1, CHIN1, CHIN2, HR, EKG, Legs, PFLOW, SNOR, FLOW, CFLOW, Tidal Volume, THOR, ABDO, SpO2, PLTH, CPRESS, ETCO2 Wave, ETCO2, pH Sleep Architecture Sleep Stages Time at Lights Off 9:06:21 PM STAGES Time (min.) TST (%) Time at Lights On 5:29:51 AM Wake 65.0 -- Total Recording Time (TRT) 503.50 min. N1 11.0 3 Total Sleep Period (TSP) 486.5 min. N2 238.5 54 Total Sleep Time (TST) 438.0min. N3 109.0 25 Awake Time 65.0 min. REM 79.5 18 Wake after Sleep Onset 48.5 min. Sleep Efficiency (SE) 87 % Sleep Onset Latency (MOSES) 17.0 min. Number of Stage 1 Shifts None Awakenings 11 Stage Changes 48 Number of REM periods 6 REM 79.5 18 REM Latency 94.0 min. NREM 358.5 82 Body Position Analysis Supine Right Left Side Prone Vertical Total Sleep Time (min.) 124.6 255.8 97.0 352.79 0.0 0.0 Total Sleep Time (%) 19% 58% 22% 81 0% N/A% Total Sleep Time REM (min.) 15.0 28.5 36.0 None 0.0 0.0 Total Sleep Time NREM (min.) 70.2 227.3 61.0 None 0.0 0.0 Intermittent Wake (min.) 39.4 22.7 2.9 None 0.0 0.0 Total Sleep Period (%) 25% None None None None None Arousals Myoclonus (PLM) * Events Count Index Events Count Index Spontaneous 3 0 Events Awake (PLMW) 58 53.5 Respiratory 0 0.0 Events Asleep w/ Arousal (PLMA) 1 0.1 PLM 1 0 Events Asleep w/o Arousal (PLMS) 3 0.4 Snoring 2 0 Total Asleep 4 0.5 Total 5 1 Total 62 7 Respiratory Analysis * CA OA MA CH H RERA Total Count 0 0 0 0 2 0 2 Index 0.0 0.0 0.0 0 0.3 0 0.3 Mean Duration 0.0 0.0 0.0 0.00 16.5 0.0 16.5 Longest Duration 0.0 0.0 0.0 0.00 0.0 0.0 20.2 Respiratory Event Summary Total Supine ~Supine Right Left Prone REM NREM Apneas Count 0 0 0 0 0 N/A 0 0 Index 0.0 0 0 0.0 0.0 N/A 0 0 Hypopneas (4% Desat) Count 2 2 0 0 0 N/A 1 1 Index 0.3 1.4 0 0.0 0.0 N/A 0.8 0.2 Apneas & All Hypopneas Count 2 2 0 0 0 N/A 1 1 Index 0.3 1 0 0 0 N/A 0.8 0.2 Respiratory Events ([employer]+All Hyp+RERA) Count 2 2 0 0 0 N/A 1 1 Index 0.3 1 0 0.0 0.0 N/A 0.8 0.2 Respiratory Related Arousal Count 0 2 0 0 0 N/A 0 0 Index 0.0 0 0 0 0 N/A 0 0 Snoring Analysis Supine Right Left Prone REM NREM Total Snore duration 68.6 min Snores count 196 1,438 647 N/A 367 1,914 2,281 Snore mean duration 1.8 Sec Snores index 138 337 400 N/A 277.0 320.3 312.5 TST with snoring (%) 15.7% Desaturation Event Summary: Minimum %SpO2 Event Count Mean/Min/Max Duration(sec.) Desaturation Index % Time In Bed > 90 10 30.1 / 5.5 / 52.5 1.3 95.9 86 - 90 1 5.5 / 5.5 / 5.5 3.9 3.3 81 - 85 1 15.2 / 15.2 / 15.2 16.1 0.8 76 - 80 0 N/A 0.0 0.0 71 - 75 0 N/A 0.0 0.0 66 - 70 0 N/A 0.0 0.0 61 - 65 0 N/A 0.0 0.0 56 - 60 0 N/A 0.0 0.0 51 - 55 0 N/A 0.0 0.0 < 50 0 N/A 0.0 0.0 Total REM NREM Awake <50% 0.0 min. 0.0 min. 0.0 min. 0.0 min. 51 - 60% 0.0 min. 0.0 min. 0.0 min. 0.0 min. 61 - 70% 0.0 min. 0.0 min. 0.0 min. 0.0 min. 71 - 80% 0.0 min. 0.0 min. 0.0 min. 0.0 min. 81 - 90% 19.0 min. 8.3 min. 5.1 min. 5.6 min. 91 - 100% 447.5 min. 70.5 min. 349.6 min. 27.5 min. Average 93 92 93 92 Minimum SpO2 81 88 84 81 Desaturation Event Index 1.3 1.5 0.8 4.6 # Desat. Events below 89% 4 2 N/A 2 Time(%) with Saturation below 89% 0.9 0.1 0.1 0.7 Time(min.) with Saturation below 89% 4.4 0.5 0.6 3.3 Time (mins) REM (mins) NREM (mins) % of TST SpO2 Below 90% 4 2 N2 0.6 SpO2 Below 88% 1 0 0 0 Heart Rate Analysis Min (bpm) Max (bpm) Average (bpm) Awake 37 127 71 NREM 55 85 62 REM 57 76 67 Overall 55 85 63 Supplemental O2 Values Minimum O2 level: None Value Start Time End Time [facility] Comments Mr. Walters slept in the right, left, and supine positions. No cardiac arrhythmia or PLMs noted. No bruxism noted. Snoring was noted and scored as a 4 on a scale of 0 through 5. (0=no snoring, 5=snoring loud enough to be heard through a closed door or down the [address]) Mr. Walters awoke to use the restroom once during the night. physician. The completed physician report will then be placed in the patient medical record. Therapy (cm H2O) 0 TIB (min.) 503.0 TST (min.) 438.0 Sleep Onset (min.) 17.0 REM Onset From Sleep (min.) 94.0 Sleep Efficiency % 87 Wakefulness (%) 13 Wakefulness (min.) 65.0 NREM 1 (%) 3 NREM 1 (min.) 11.0 NREM 2 (%) 54 NREM 2 (min.) 238.5 NREM 3 (%) 25 NREM 3 (min.) 109.0 REM (%) 18 REM (min.) 79.5 # Arousals 5 Arousal Index 1 # Snore 2,281 Snore Index 312.5 AHI 0.3 AHI Supine 1 AHI Non-Supine 0 NREM AHI 0.2 REM AHI 0.8 RDI 0.3 # Obstructive Apnea 0 # Central Apnea 0 # Mixed Apnea 0 # Hypopneas 2 RERAs 0 Total Respiratory Events 5 Time Below SpO2 89% (min.) 1.0 Mean NREM SpO2 (%) 93 Mean REM SpO2 (%) 92 Mean Sleep SpO2 (%) 93 Min NREM SpO2 (%) 84 Min REM SpO2 (%) 88 Position Supine (min.) 124.6 Position Non-supine (min.) 352.8 LM Index Sleep 0.5 LM Index NREM 0.7 LM Index REM 0.0 Mean Heart Rate (bpm) 63 Min Heart Rate (bpm) 55
--- NOTE | 2017-03-10 07:56 | Sleep Study ---
Sleep Study Report Date of Service: 03/06/2017 Sleep Study Report Clinical data: The patient is a 36-year-old male with a history of a traumatic brain injury in 2007 which was associated with hydrocephalus. There is a history of snoring, insomnia, disturbed nocturnal sleep, and excessive daytime somnolence. His [place] score is 18 out of a possible 24. This was an in-lab overnight diagnostic polysomnography. His BMI is 29.07. Sleep architecture: The total sleep period was 486.5 minutes. The total sleep time was 438.0 minutes. The sleep efficiency was borderline normal at 87 percent. The sleep latency was 17 minutes. Wake after sleep onset was 48.5 minutes. The REM latency was 94 minutes. Sleep consisted of stage N1 3 percent, stage N2 54 percent, stage N3 25 percent , stage REM 18 percent. Arousal data: The patient had a total of 5 arousals including 3 spontaneous arousals, 1 PLM arousal, and 2 snoring arousals. The arousal index was only 1. PLM data: The patient had a total of 4 periodic limb movements of sleep for a PLM index of 0.5. There was 1 arousal associated with limb movements for a PLM arousal index of 0.1. EKG: The underlying cardiac rhythm was normal sinus. The cardiac rates ranged from 55 to 85 beats per minute with an average heart rate of 63 beats per minute. No arrhythmia was noted. Respiratory data: The patient had a total of 2 respiratory events for the entire night, both of which were hypopneas. The hypopneas were scored according to the 4 percent desaturation rule. The mean duration of the hypopneas was 16.5 seconds. The apnea-hypopnea index was normal at 0.3 events per hour. This would suggest no significant sleep apnea. Oximetry data: The average saturation was 93 percent. The minimum recorded saturation was 81 percent and this was clearly technical, there was no significant time less than 89 percent. Composite Engineer comments: The patient slept on the right, left, and supine positions. No cardiac arrhythmia or PLMS noted. No bruxism noted. Snoring was noted and scored as a 4 on a scale of 0 through 5. The patient awakened to use the restroom only once during the night. Impressions: 1. No evidence of obstructive sleep apnea or periodic limb movement disorder 2. Primary snoring Comments: The patient had a near normal overnight sleep study. His sleep efficiency was borderline normal. Sleep architecture was normal. There was no significant limb movement abnormality. Oxygenation was normal. He had no sleep apnea. It would seem like his sleep was much better than it usually is. The patient does live in a correction. He is taking a number of medications which could contribute to daytime somnolence including gabapentin, levetiracetam, vimpat, zonisamide, seroquel, temazepam, and zoloft. He does have loud snoring. Recommendations: 1. No specific sleep recommendations at present other than to try and maintain the patient as much as possible on a regular sleep-wake schedule.Consideration could be given to adjusting his medications which may contribute to daytime somnolence depending on clinical circumstances. 2. The patient should follow up with his primary physician as well as his neurologist for routine care. Copies To 1: Deb Lara PA-C; Nadir Blankenship, DO
== END | disposition home or self-care (01) ==
LOC: C.NEUR 20:00
PROVIDERS: ATTEND Internal Medicine Pulmonary Disease
DX: R06.83 Snoring (principal)

== ENCOUNTER 2017-03-15 21:20 | Emergency (ER) | payer OTHER ==
[~2017-03-15] VITALS: Ht 172.7 cm; Wt 88.0 kg
[2017-03-15 22:21] VITALS: BP 128/87; TEMP 36.8; Ht 172.7 cm; Wt 88.0 kg
[2017-03-15] MEDS ORDERED: ACETAMINOPHEN/CODEINE 300/30MG TAB PO ONE (23:00)
--- NOTE | 2017-03-15 23:13 | DIAGNOSTIC IMAGING REPORT ---
L FINGER(S) MIN 2 VIEWS ROUTINE CLINICAL HISTORY: 36 years-old Male presenting with finger pain swelling and deformity. TECHNIQUE: Frontal, oblique, and lateral views of the left third finger were obtained. COMPARISON: None. FINDINGS: Dorsal lateral dislocation of the middle phalanx of the third finger at the proximal interphalangeal joint. No avulsion fracture fragment is evident. Possible old deformity of the proximal phalanx of the fifth finger. Mild soft tissue swelling at the proximal interphalangeal joint of the third finger. IMPRESSION: Dorsal lateral dislocation of the middle phalanx of the third finger at the proximal interphalangeal joint. No acute fracture is evident. Electronically signed by: Keagan Carter M.D. 03/15/2017 11:12 PM Dictated Date/Time: 03/15/2017 11:10 PM
--- NOTE | 2017-03-15 23:33 | EMERGENCY ROOM VISIT NOTE ---
ED Visit Note First contact with patient: 22:30 CHIEF COMPLAINT: Finger injury today HISTORY OF PRESENT ILLNESS: This 36-year-old male patient presents to the emergency department ambulatory after they injured the left third finger just prior to arrival. The patient was reaching forward and fell, and caught himself with the left third finger. The patient has been unable to move it at the PIP joint since and there is moderate and constant pain. The patient rates the pain as dull and 2/10. No previous injuries to the finger. The patient has taken no medication for relief of the pain. REVIEW OF SYSTEMS: A 6 system review of systems was completed with positives and pertinent negatives listed in the HPI. ALLERGIES: Carbapenems, cephalosporins, iodine, penicillins MEDICATIONS: See med list PMH: Traumatic brain injury SOCIAL HISTORY: The patient lives locally. He presents with a dispatch manager. PHYSICAL EXAM: Vital Signs: Reviewed Nurse's notes, vital signs stable. GENERAL : This is a 36-year-old male, in no acute distress, but appears to be in pain, well-developed, well-nourished. MUSCULOSKELETAL: There is an obvious deformity at the PIP joint of the left third finger with dorsal dislocation of the middle phalanx. The patient is unable to move the PIP joint. The distal dislocated portion of the finger is pale but is sensate. SKIN: There is no laceration or abrasion. Capillary refill is less than two seconds. RADIOGRAPHIC FINDINGS: L FINGER(S) MIN 2 VIEWS ROUTINE FINDINGS: Dorsal lateral dislocation of the middle phalanx of the third finger at the proximal interphalangeal joint. No avulsion fracture fragment is evident. Possible old deformity of the proximal phalanx of the fifth finger. Mild soft tissue swelling at the proximal interphalangeal joint of the third finger. IMPRESSION: Dorsal lateral dislocation of the middle phalanx of the third finger at the proximal interphalangeal joint. No acute fracture is evident. LEFT FINGER, POST-REDUCTION: Anatomical Alignment of the finger at the PIP. No acute fractures identified. EMERGENCY DEPARTMENT COURSE: I examined the patient. An X-ray of the of the left third finger was reviewed by myself and radiology and shows a dislocation at the PIP. Verbal consent was obtained to perform the procedure. The joint was reduced by applying a steady and rapid axial distraction of the dislocated portion at the PIP joint while the proximal portion was stabilized with the other hand. Following this motion of the joint was normal and full and the patient could move it normally. Neurovascular status was rechecked and intact. Post-reduction X-ray was reviewed by myself and shows no obvious fracture. Alignment of the finger was anatomical. Patient was given an ice pack and Tylenol No. 3 for pain. He was placed in a metal finger splint. The patient was discharged home in stable condition. Blood pressure screening: Patient was found to have normal blood pressure on screening and does not require follow-up. Medication reconciliation: I attest that I have personally reviewed the patient 's current medication list. DIAGNOSIS: Dislocated PIP joint of the left third finger Problem List Medical Problems: (1) Seizure disorder Status: Chronic (2) Traumatic brain injury Status: Chronic Current/Historical Medications Scheduled Eucerin (Eucerin), 1 APPLN TOP QPM Gabapentin (Neurontin), 800 MG PO BID Gabapentin (Neurontin), 1,600 MG PO QPM Lacosamide (Vimpat), 200 MG PO BID Levetiracetam (Keppra), 2,000 MG PO BID Melatonin (Melatonin Maximum Strengt), 5 MG PO HS Multiple Vitamins W/ Minerals (Multi For Him), 1 TAB PO DAILY Pantoprazole (Protonix), 40 MG PO QAM Quetiapine Fumarate (Seroquel), 25 MG PO HS Sertraline Hcl (Zoloft), 50 MG PO DAILY Simvastatin (Zocor), 20 MG PO QPM Zonisamide (Zonegran), 200 MG PO QPM Scheduled PRN Docusate Sodium (Colace), 1 CAP PO BID PRN for Ibuprofen Tab (Motrin), 800 MG PO UD PRN for Pain Polyethylene Glycol 3350 (Miralax), 17 GM PO DAILY PRN for Constipation Allergies Coded Allergies: Carbapenems (Unverified Allergy, Unknown, UNKNOWN, 03/15/17) Cephalosporins (Unverified Allergy, Unknown, UNKNOWN, 03/15/17) Iodine (Unverified Allergy, Unknown, UNKNOWN, 03/15/17) Lactose Intolerance (GI) (Unverified Allergy, Unknown, UNKNOWN, 03/15/17) Penicillins (Unverified Allergy, Unknown, UNKNOWN, 03/15/17) Pork (Unverified Allergy, Unknown, UNKNOWN, 03/15/17) Shellfish Allergy (Unverified Allergy, Unknown, UNKNOWN, 03/15/17) Vital Signs Date Time Temp Pulse Resp B/P (MAP) Pulse Ox O2 Delivery O2 Flow Rate FiO2 03/15/17 23:51 77 19 97 03/15/17 22:21 36.8 79 20 128/87 95 Room Air Medications Administered Medications (Trade) Dose Ordered Sig/Kami Route Start Time Stop Time Status Last Admin Dose Admin Acetaminophen/ Codeine Phosphate (Tylenol w/ Codeine #3 Tab) 1 tab NOW ONCE PO 03/15/17 23:00 03/15/17 23:01 DC 03/15/17 23:00 1 TAB Departure Information Impression Primary Impression: Finger dislocation Dispostion Home / Self-Care Condition GOOD Referrals Abby Espinal.,P.A. (PCP) Patient Instructions [facility] Problem Qualifiers Primary Impression: Finger dislocation Encounter type: initial encounter Qualified Codes: S63.259A - Unspecified dislocation of unspecified finger, initial encounter
[2017-03-15 23:51] VITALS: PULSE 77; O2SAT 97
--- NOTE | 2017-03-16 07:06 | DIAGNOSTIC IMAGING REPORT ---
LEFT THIRD FINGER 3 VIEWS CLINICAL HISTORY: Postreduction examination. FINDINGS: 3 views of the left third finger are compared to study performed earlier the same day 03/15/2017. The skeletal structures are well mineralized. There is been successful reduction of the dislocated third proximal interphalangeal joint with taoist of near-anatomic alignment. Overlying soft tissue edema is noted. No fracture is seen. The joint spaces appear maintained. IMPRESSION: 1. There has been successful reduction of the dislocated third proximal interphalangeal joint with overlying soft tissue edema. 2. No fracture is identified. Electronically signed by: Hank Lagunas M.D. 03/16/2017 7:05 AM Dictated Date/Time: 03/16/2017 7:04 AM
== END 2017-03-15 23:53 | disposition home or self-care (01) ==
LOC: C.EDB 21:21 → C.EDA 23:53
DX: S63.283A Dislocation of proximal interphalangeal joint of left middle finger, initial encounter (principal); W18.30XA Fall on same level, unspecified, initial encounter; G40.909 Epilepsy, unspecified, not intractable, without status epilepticus; Z87.820 Personal history of traumatic brain injury

== ENCOUNTER → 2017-09-27 | Outpatient (CLI) | payer OTHER ==
[~2017-09-27] MED LIST changes: -TEMA30CA4 PO
[2017-09-27 14:09] LABS: ALBUMIN 3.8 gm/dl (3.4-5.0); AST/SGOT 17 U/L (15-37); BLOOD UREA NITROGEN 14 mg/dl (7-18); CALCIUM 8.7 mg/dl (8.5-10.1); CARBON DIOXIDE 23 mmol/L (21-32); CREATININE 1.28 mg/dl (0.60-1.40); GLUCOSE 92 mg/dl (70-99); POTASSIUM 3.8 mmol/L (3.5-5.1); SODIUM 140 mmol/L (136-145)
[2017-09-27 14:10] LABS: ALT/SGPT 46 U/L (12-78); CHOLESTEROL 165 mg/dl (0-200)
[2017-09-27 14:12] LABS: ALKALINE PHOSPHATASE 112 U/L (45-117); LDL CHOLESTEROL CALCULATED 104 mg/dl; TOTAL PROTEIN 7.4 gm/dl (6.4-8.2)
== END | disposition home or self-care (01) ==
LOC: C.LABBC 09:51
PROVIDERS: ATTEND Physician Assistant Medical
DX: Z00.00 Encounter for general adult medical examination without abnormal findings (principal); E78.5 Hyperlipidemia, unspecified; F09 Unspecified mental disorder due to known physiological condition; J30.9 Allergic rhinitis, unspecified